=== PATIENT | female | born 1945 | race Caucasian/White ===

== ENCOUNTER → 2016-11-12 | Outpatient (CLI) | payer BC ==
--- NOTE | 2016-11-13 13:34 | MAMMOGRAPHY REPORT ---
BILATERAL DIGITAL SCREENING MAMMOGRAM TOMOSYNTHESIS WITH CAD: 11/12/2016 CLINICAL HISTORY: Routine screening. Patient has no complaints. TECHNIQUE: Breast tomosynthesis in addition to standard 2D mammography was performed. Current study was also evaluated with a Computer Aided Detection (CAD) system. COMPARISON: Comparison is made to exams dated: 11/10/2015 mammogram, 09/28/2013 mammogram, 09/21/2012 mammogram, 09/18/2011 mammogram, 09/17/2010 mammogram, and 09/13/2009 mammogram - [facility]. BREAST COMPOSITION: The tissue of both breasts is heterogeneously dense, which may obscure small ma sses. FINDINGS: Right MLO view is slightly suboptimal due to limited mobility of the patient's right shoul laura. There are scattered stable benign-appearing microcalcifications bilaterally. No suspicious ma ss, architectural distortion or cluster of suspicious microcalcifications is seen. IMPRESSION: ACR BI-RADS CATEGORY 1: NEGATIVE There is no mammographic evidence of malignancy. A 1 year screening mammogram is recommended. The p atient will receive written notification of the results. Approximately 10% of breast cancers are not detected with mammography. A negative mammographic repor t should not delay biopsy if a clinically suggestive mass is present. Delores Lee M.D. ay/:11/12/2016 21:19:20 File Machine Operator: Angie LEROY)(M), [facility] letter sent: Normal 1/2 BI-RADS Code: ACR BI-RADS Category 1: Negative
== END | disposition home or self-care (01) ==
LOC: C.MAMM 11:21
PROVIDERS: ATTEND Family Medicine
DX: Z12.31 Encounter for screening mammogram for malignant neoplasm of breast (principal)

== ENCOUNTER → 2017-08-12 | Outpatient (CLI) | payer BC | END | disposition home or self-care (01) | LOC: C.LABMFLN 15:20 | PROVIDERS: ATTEND Physician Assistant | DX: R42 Dizziness and giddiness (principal); R07.89 Other chest pain ==

== ENCOUNTER 2017-09-14 10:56 | Emergency (ER) | payer BC ==
[~2017-09-14] VITALS: Ht 160 cm; Wt 60.1 kg
[2017-09-14 11:08] VITALS: TEMP 36.4; Ht 160 cm; Wt 60.1 kg
[2017-09-14] MEDS ORDERED: TNR25 PO (11:35)
[2017-09-14] MEDS ORDERED: META1TAB22 PO (12:15)
[2017-09-14 12:28] VITALS: BP 110/65; PULSE 70; O2SAT 100
--- NOTE | 2017-09-14 16:24 | EMERGENCY ROOM VISIT NOTE ---
History First contact with patient: 11:31 Chief Complaint: NECK PAIN Stated Complaint: STIFF NECK,PAIN AT BASE OF SKULL,[place] History of Present Illness The patient is a 72 year old female who presents to the Emergency Room with complaints of persistent neck pain. The patient reports that she developed a mild stiff neck 4 days ago. The patient took a Flexeril 5 mg tablet without any relief. She is also tried hot baths and being careful was sleeping position. The patient usually sleeps on her side. The patient otherwise denies any recent upper respiratory symptoms, cough, sore throat, headache or photophobia. The pain is worsened with any attempted movement of the neck, and rates her discomfort a 9 out of 10. Review of Systems 10 system review was performed and was negative except for pertinent positives and negatives as indicated in history of present illness Past Medical/Surgical History Medical Problems: (1) Atrial Fibrillation (2) Coronary Atherosclerosis Of [place] Coronary Vessel (3) Osteoporosis Nos (4) Senile Nuclear Cataract Surgical Problems: (1) History of cataract surgery Family History Unremarkable Social History Smoking Status: Never Smoker Alcohol Use: none Marital Status: Occupation Status: retired Current/Historical Medications Scheduled Atenolol (Atenolol), 6.25 MG PO DAILY Metaxalone (Skelaxin), 800 MG PO QID Physical Exam Vital Signs Date Time Temp Pulse Resp B/P (MAP) Pulse Ox O2 Delivery O2 Flow Rate FiO2 09/14/17 12:28 70 18 110/65 100 09/14/17 11:08 36.4 75 20 113/74 100 Room Air Physical Exam CONSTITUTIONAL: Healthy and well nourished. Alert and oriented X 3 with positive affect. Patient does not appear in any significant distress. HEENT: Normocephalic, atraumatic. Pupils equal, round and reactive. Ears and nares are clear. No subconjunctival hemorrhage or conjunctival injection. NECK: Examination shows notable rigidity of the paraspinous muscles, right worse than left. She has no focal tenderness through the central cervical spine. She does have mild tenderness at the insertion site on the scalp and trapezius muscles. OROPHARYNX: No posterior pharyngeal erythema, tonsillar hypertrophy, postnasal drip or evidence for Bronson's angina or retropharyngeal abscess. RESPIRATORY: Clear to auscultation bilaterally with no wheezing, crackles, rhonchi or stridor. CARDIOVASCULAR: Regular rate and rhythm with no murmurs, rubs or gallops. MUSCULOSKELETAL: Full range of motion of all joints without discomfort. INTEGUMENTARY: No rash or other significant dermatologic conditions noted. HEMATOLOGIC: No ecchymosis or petechiae noted. NEUROLOGIC: No focal neurologic deficits noted. Medical Decision & Procedures ED Course Patient history and physical exam were performed. Nurse's notes were reviewed. Vital signs were reviewed and were normal. The patient repeatedly told me that she does not tolerate medicines well. She reports that even Flexeril 5 mg tablets make her extremely drowsy, and reports that her prescription was written for 15 mg of Flexeril as needed. The patient has therefore had this problem in the past. With the patient denying any recent trauma, I did suggest no further imaging studies. The patient would like to try some medicine that does not have a drowsy profile. She reports that she has also taken tramadol in the past that makes her too loopy. It all for prescriptions for other NSAIDs , however do feel that a muscle relaxer would be beneficial. I did discuss the use of Skelaxin which has a lower sedating profile. She wanted to know if this was covered under insurance. I did call and speak with her pharmacist at [facility] in [place], who reported that her insurance would cover it with less than a $3 co-pay. This was suggested for the patient. In addition to the Skelaxin, she was also dispensed a soft collar, and encouraged to intermittently apply heat to the neck. She was encouraged to continue follow- up with her PCP as needed for further management, and is welcome to return to the emergency department for any progressively worsening symptoms. The patient and were happy with plan care, and voiced understanding of all discharge instructions. Medical Decision Medication Reconcilliation Current Medication List: was personally reviewed by me Blood Pressure Screening Patient's blood pressure: Normal blood pressure Impression Primary Impression: Torticollis, acute Departure Information Dispostion Home / Self-Care Condition GOOD Prescriptions Metaxalone (Skelaxin) 800 Mg Tab 800 MG PO QID, #30 TAB Prov: Jai Alarcon PA 09/14/17 Referrals Fortino Tipton M.D. (PCP) Forms HOME CARE DOCUMENTATION FORM, IMPORTANT VISIT INFORMATION Patient Instructions [place], My [facility] Additional Instructions Continue to intermittently apply moist heat to the neck. Wear soft collar for additional relief. Try taking Skelaxin as prescribed for additional relaxation of the muscles. Follow-up with your family doctor's office as needed for further management.
== END 2017-09-14 12:29 | disposition home or self-care (01) ==
LOC: C.EDB 10:57 → C.EDD 12:29
DX: M43.6 Torticollis (principal); I48.91 Unspecified atrial fibrillation; I25.10 Atherosclerotic heart disease of native coronary artery without angina pectoris; M81.0 Age-related osteoporosis without current pathological fracture; Z98.49 Cataract extraction status, unspecified eye; Z79.899 Other long term (current) drug therapy

== ENCOUNTER → 2017-10-14 | Outpatient (CLI) | payer BC ==
[~2017-10-14] MED LIST: META1TAB22 PO; TNR25 PO
[2017-10-14 17:59] LABS: BASO % 0.5 %; BASO ABS # 0.03 K/uL (0-0.2); EOS % 1.7 %; HEMATOCRIT 37.5 % (37-47); HEMOGLOBIN 12.7 g/dL (12.0-16.0); LYMPH % 29.7 %; LYMPH ABS # 1.75 K/uL (1.2-3.4); MEAN CELL VOLUME 85.4 fL (80-100); MEAN CORPUSCULAR HEMOGLOBIN 28.9 pg (25-34); MEAN CORPUSCULAR HGB CONC 33.9 g/dl (32-36); MONO ABS # 0.47 K/uL (0.11-0.59); NEUT % 60.1 %; NEUT ABS # 3.55 K/uL (1.4-6.5); PLATELET COUNT 176 K/uL (130-400); RED CELL DISTRIBUTION WIDTH CV 12.8 % (11.5-14.5); RED CELL DISTRIBUTION WIDTH SD 39.6 fL (36.4-46.3)
== END | disposition home or self-care (01) ==
LOC: C.LABMFLN 14:03
PROVIDERS: ATTEND Family Medicine
DX: Z13.9 Encounter for screening, unspecified (principal); R53.83 Other fatigue

== ENCOUNTER → 2017-11-14 | Outpatient (CLI) | payer BC ==
--- NOTE | 2017-11-17 08:08 | MAMMOGRAPHY REPORT ---
BILATERAL DIGITAL SCREENING MAMMOGRAM TOMOSYNTHESIS WITH CAD: 11/14/2017 CLINICAL HISTORY: Routine screening. Patient has no complaints. TECHNIQUE: Breast tomosynthesis in addition to standard 2D mammography was performed. Current study was also evaluated with a Computer Aided Detection (CAD) system. COMPARISON: Comparison is made to exams dated: 11/12/2016 mammogram, 11/10/2015 mammogram, 11/04/2014 m ammogram, 09/28/2013 mammogram, 09/21/2012 mammogram, and 09/18/2011 mammogram - [facility]. BREAST COMPOSITION: The tissue of both breasts is heterogeneously dense, which may obscure small mas ses. FINDINGS: The glandular pattern is patchy and nodular, but stable compared to prior mammograms. Ther e is evidence of prior surgery in the left upper outer quadrant posteriorly. No new suspicious mass, architectural distortion or cluster of microcalcifications is seen. IMPRESSION: ACR BI-RADS CATEGORY 1: NEGATIVE There is no mammographic evidence of malignancy. A 1 year screening mammogram is recommended. The pa tient will receive written notification of the results. Approximately 10% of breast cancers are not detected with mammography. A negative mammographic report should not delay biopsy if a clinically suggestive mass is present. Delores Lee M.D. ay/:11/14/2017 15:44:10 Animal Handler: Ruthie Allred, [facility] letter sent: Normal 1/2 BI-RADS Code: ACR BI-RADS Category 1: Negative
== END | disposition home or self-care (01) ==
LOC: C.MAMM 14:14
PROVIDERS: ATTEND Family Medicine
DX: Z12.31 Encounter for screening mammogram for malignant neoplasm of breast (principal)

== ENCOUNTER → 2018-01-05 | Outpatient (CLI) | payer BC | END | disposition home or self-care (01) | LOC: C.LABMFLN 14:28 | PROVIDERS: ATTEND Internal Medicine | DX: R10.13 Epigastric pain (principal) ==

== ENCOUNTER → 2018-01-13 | Outpatient (CLI) | payer BC ==
[2018-01-13 18:05] LABS: URIC ACID 4.2 mg/dl (2.6-7.2)
== END | disposition home or self-care (01) ==
LOC: C.LABMFLN 13:50
PROVIDERS: ATTEND Family Medicine
DX: M25.579 Pain in unspecified ankle and joints of unspecified foot (principal); M81.0 Age-related osteoporosis without current pathological fracture